=== PATIENT | male | born 1985 | race African-American/Black ===

== ENCOUNTER 2018-12-29 10:32 | Emergency (ER) | payer OTHER ==
[~2018-12-29] VITALS: Ht 175.3 cm; Wt 77.1 kg
--- NOTE | 2018-12-29 10:40 | NUR ---
Dr Becerra at the bedside for MSE.
[2018-12-29 11:01] VITALS: BP 123/62
--- NOTE | 2018-12-29 11:01 | NUR ---
Patient discharged to home in stable conditon. Written and verbal after care instructions given. Patient verbalizes understanding of instructions.
== END 2018-12-29 11:01 | disposition home or self-care (01) ==
LOC: ER 10:34
DX: J20.9 Acute bronchitis, unspecified (principal); F17.200 Nicotine dependence, unspecified, uncomplicated
CPT/HCPCS: 71045; A4663

== ENCOUNTER 2019-10-20 19:16 | Emergency (ER) | payer MEDICAID, OTHER ==
[~2019-10-20] VITALS: Ht 177.8 cm; Wt 77.1 kg
--- NOTE | 2019-10-20 19:35 | NUR ---
Dr. Ball at bedside for MSE
[2019-10-20] MEDS ORDERED: BENZONATATE 100 MG CAPSULE ONE (19:39)
[2019-10-20] MEDS ORDERED: ALBUTEROL SULFATE 2.5 MG/3 ML NEBU ONE (19:42)
[2019-10-20] MEDS ORDERED: ALBUTEROL SULFATE 2.5 MG/3 ML NEBU NEB ONE (19:45)
[2019-10-20] MEDS ORDERED: BENZONATATE 100 MG CAPSULE PO ONE (19:45)
--- NOTE | 2019-10-20 20:20 | NUR ---
Patient discharged to home in stable conditon. Written and verbal after care instructions given. Patient verbalizes understanding of instructions. Patient ambulating with steady gait
[2019-10-20 20:21] VITALS: BP 108/71
== END 2019-10-20 20:20 | disposition home or self-care (01) ==
LOC: ER 19:16
DX: J42 Unspecified chronic bronchitis (principal); F17.210 Nicotine dependence, cigarettes, uncomplicated; F12.10 Cannabis abuse, uncomplicated
CPT/HCPCS: A4663